=== PATIENT | female | born 2000 | race Caucasian/White ===

== ENCOUNTER 2023-12-11 08:00 | Outpatient (CLI) | payer OTHER ==
[2023-12-11 09:17] LABS: BILIRUBIN,URINE NEGATIVE (NEGATIVE); GLUCOSE, URINE (UA) NEGATIVE (NEGATIVE); KETONES,URINE (UA) NEGATIVE (NEGATIVE); LEUKOCYTE ESTERASE, URINE NEGATIVE (NEGATIVE); NITRITE,URINE NEGATIVE (NEGATIVE); OCCULT BLOOD,URINE NEGATIVE (NEGATIVE); PROTEIN,URINE NEGATIVE (NEGATIVE); UROBILINOGEN,URINE 0.2 (NORMAL) E.U./dL (NORMAL)
[2023-12-11 09:23] LABS: BACTERIA,URINE None Seen /HPF (None Seen); CLARITY,URINE CLEAR (CLEAR); RBC,URINE 0-5 /HPF (0-5); SQUAMOUS EPITHELIAL CELL,UR RARE Squamous (<= Few); WBC,URINE 0-3 /HPF (0-5)
== END 2023-12-11 23:59 | disposition home or self-care (01) ==
LOC: LAB.WC 08:00
PROVIDERS: ATTEND Obstetrics & Gynecology
DX: Z34.90 Encounter for supervision of normal pregnancy, unspecified, unspecified trimester (principal)
CPT/HCPCS: 81001; 87086

== ENCOUNTER 2023-12-21 08:34 | Outpatient (CLI) | payer OTHER ==
--- NOTE | 2023-12-21 15:26 | Ultrasound Report ---
PROCEDURE: OB 1st Trimester INDICATIONS: POSITIVE TEST OUTSIDE/PRIOR DATING DATA: Last menstrual period (LMP): 10/03/2023. LMP-based estimated date of delivery (FESTUS): 07/09/2024. First dating scan (date and location): 12/21/2023. Estimated date of delivery (FESTUS) from first dating scan: 07/08/2024. TECHNIQUE: Real-time scanning was performed of the fetus and maternal pelvic organs, with image documentation. COMPARISON: None. FINDINGS: Intrauterine gestational sac present. Embryo: There is a single live intrauterine gestation with a crown-rump length of 4.6 cm for a gesta tional age of 11 weeks, 3 days. Heart rate: 145 bpm. Other: No perigestational fluid collection. Measurement variability in dating: +/- 4 weeks by LMP, +/- 7 days by mean sac diameter (use before 6 weeks gestation if crown-rump length not able to be measured), +/- 5 days by crown-rump length (6-12 weeks gestation). Maternal organs: Ovaries are sonographic appearance. There is a left corpus luteal cyst which measur es 2.1 cm in diameter. IMPRESSION: 1. Single live intrauterine gestation with a gestational age of 11 weeks, 3 days by crown-rump length . Reviewed by: Cheryl Estrada MD on 12/21/2023 3:24 PM PDT Approved by: Cheryl Estrada MD on 12/21/2023 3:24 PM PDT Station ID: [id number]
== END 2023-12-21 08:35 | disposition home or self-care (01) ==
LOC: DI 08:34
PROVIDERS: ATTEND Obstetrics & Gynecology
DX: Z34.91 Encounter for supervision of normal pregnancy, unspecified, first trimester (principal)

== ENCOUNTER 2024-01-07 08:00 | Outpatient (CLI) | payer OTHER ==
[2024-01-07 20:33] LABS: CHLAMYDIA TRACHOMATIS DNA NEGATIVE (NEGATIVE); NEISSERIA GONORRHOEAE DNA NEGATIVE (NEGATIVE); TRICHOMONAS VAGINALIS DNA NEGATIVE (NEGATIVE)
== END 2024-01-07 23:59 | disposition home or self-care (01) ==
LOC: LAB.WC 08:00
PROVIDERS: ATTEND Obstetrics & Gynecology
DX: Z11.3 Encounter for screening for infections with a predominantly sexual mode of transmission (principal)
CPT/HCPCS: 87491; 87591; 87661

== ENCOUNTER 2024-01-07 16:01 | Outpatient (CLI) | payer OTHER | END 2024-01-07 16:02 | disposition home or self-care (01) | LOC: LAB 16:01 | PROVIDERS: ATTEND Obstetrics & Gynecology | DX: Z11.3 Encounter for screening for infections with a predominantly sexual mode of transmission (principal) | CPT/HCPCS: 85025; 86592; 86762; 86787; 86803; 86850; 86900; 86901; 87340; 87389; 87491; 87591; 87661 ==

== ENCOUNTER 2024-01-27 07:54 | Outpatient (CLI) | payer OTHER ==
[2024-01-27 11:49] LABS: BASOPHILS % (AUTO) 0.3 %; EOSINOPHILS # (AUTO) 0.1 10^3/uL (0.0-0.7); EOSINOPHILS % (AUTO) 0.7 %; HCT - HEMATOCRIT 33.2 % (37.0-47.0); HGB - HEMOGLOBIN 11.5 g/dL (12.0-16.0); LYMPHOCYTES # (AUTO) 1.3 10^3/uL (1.5-3.5); LYMPHOCYTES % (AUTO) 17.5 %; MEAN CORPUSCULAR HEMOGLOBIN 29.3 pg (27.0-31.0); MEAN CORPUSCULAR HGB CONC 34.6 g/dL (32.0-36.0); MEAN CORPUSCULAR VOLUME 84.7 fL (81.0-99.0); MEAN PLATELET VOLUME 11.3 fL (7.9-10.8); MONOCYTES # (AUTO) 0.6 10^3/uL (0.0-1.0); MONOCYTES % (AUTO) 7.4 %; NEUTROPHILS # (AUTO) 5.6 10^3/uL (1.5-6.6); NEUTROPHILS % (AUTO) 73.8 %; PLT - PLATELET COUNT 218 10^3/uL (130-450); RED BLOOD COUNT 3.92 10^6/uL (4.20-5.40); RED CELL DISTRIBUTION WIDTH 12.5 % (12.0-15.0); WHITE BLOOD COUNT 7.6 x10^3/uL (4.8-10.8)
[2024-01-28 03:14] LABS: HIV SCREEN 4TH GENERATION Non Reactive (Non Reactive)
[2024-01-28 06:10] LABS: HBsAG SCREEN Negative (Negative); RPR Non Reactive (Non Reactive)
[2024-01-28 09:10] LABS: VARICELLA-ZOSTER AB IGG 317 index (Immune >165)
== END 2024-01-27 07:55 | disposition home or self-care (01) ==
LOC: LAB.N 07:54
PROVIDERS: ATTEND Obstetrics & Gynecology
DX: Z34.90 Encounter for supervision of normal pregnancy, unspecified, unspecified trimester (principal)
CPT/HCPCS: 36415; 81511; 85025; 86592; 86762; 86787; 86803; 86850; 86900; 86901; 87340; 87389

== ENCOUNTER 2024-02-23 08:49 | Outpatient (CLI) | payer OTHER ==
--- NOTE | 2024-02-23 12:05 | Ultrasound Report ---
PROCEDURE: OB Anatomy Scan INDICATIONS: SUPERVISION OF OUTSIDE/PRIOR DATING DATA: Last menstrual period (LMP): 10/03/2023. LMP-based estimated date of delivery (FESTUS): 07/09/2024. First dating scan (date and location): 12/21/2023. Estimated date of delivery (FESTUS) from first dating scan: 07/08/2024. The below data below was generated using the ultrasound FESTUS of 07/08/2024 TECHNIQUE: Real-time scanning was performed of the fetus, with image documentation and biometric measurements. Endovaginal scanning: Not performed. COMPARISON: 12/21/2023 FINDINGS: General: A single living intrauterine gestation is present. Presentation: Variable Placenta: Placental position is anterior, without previa. Amniotic fluid index: 14.7 cm, within normal limits for gestational age. (Largest vertical pocket 4 .3 cm) heart rate: 141 beats per minute. Maternal cervical canal: 4.3 cm long; normal length is 2.5 cm or more. biometrics: Biparietal diameter: 4.6 cm, 20 weeks and 0 days (27th percentile) Head circumference: 17.9 cm, 20 weeks and 3 days (32nd percentile) Abdominal circumference: 14.2 cm, 19 weeks and 4 days (15th percentile) Femur length: 3.25 cm, 20 weeks and 1 day (27th percentile) Estimated gestational age from initial scan: 20 weeks and 4 days Composite gestational age from present scan: 20 weeks and 0 days Estimated weight and percentile: 319.6 g which correlates with the 15th percentile for gestati onal age. Measurement variability in biometric dating: +/- 10 days from 12-20 weeks gestation, +/- 2 weeks from 20-30 weeks gestation, +/- 3 weeks at 30 weeks gestation or later. Anatomic survey: Neuro: Ventricles are normal at less than 10 mm. Cisterna magna is normal at 3-11 mm. Cerebellum i s normal in size and morphology. Nuchal skin fold: Normal at less than 6 mm between 14 and 20 weeks gestational age. Face: Nose and lips, facial profile are normal. Spine: No evidence for spina bifida. Heart: 4-chambered heart is present, with normal ventricular outflow tracts. Diaphragm: Diaphragm is intact. Stomach: Left-sided stomach is present. Kidneys: No hydronephrosis. Normal is less than 5 mm in 2nd trimester, less than 7 mm in 3rd trimester. Cord: 3 vessel cord has orthotopic insertion. Bladder: Normal in size. Extremities: All 4 extremities are visualized. IMPRESSION: Single living intrauterine gestation with estimated sonographic gestational age of approximately 20 w eeks and 0 days. Estimated weight of approximately 319.6 g which correlates with the 15th perce ntile for gestational age. Normal interval growth has occurred. Normal routine second trimester anatomy screening survey. Reviewed by: Juan Antonio Howard MD on 02/23/2024 12:04 PM PDT Approved by: Juan Antonio Howard MD on 02/23/2024 12:04 PM PDT Station ID: [id number]
== END 2024-02-23 08:50 | disposition home or self-care (01) ==
LOC: DI 08:49
PROVIDERS: ATTEND Obstetrics & Gynecology
DX: Z34.92 Encounter for supervision of normal pregnancy, unspecified, second trimester (principal)

== ENCOUNTER 2024-04-08 09:40 | Outpatient (CLI) | payer OTHER ==
[2024-04-08 11:30] LABS: HCT - HEMATOCRIT 34.4 % (37.0-47.0); HGB - HEMOGLOBIN 11.1 g/dL (12.0-16.0); MEAN CORPUSCULAR HEMOGLOBIN 27.8 pg (27.0-31.0); MEAN CORPUSCULAR HGB CONC 32.3 g/dL (32.0-36.0); MEAN PLATELET VOLUME 10.7 fL (7.9-10.8); RED CELL DISTRIBUTION WIDTH 12.1 % (12.0-15.0); WHITE BLOOD COUNT 10.7 x10^3/uL (4.8-10.8)
[2024-04-09 05:19] LABS: RPR Non Reactive (Non Reactive)
== END 2024-04-08 09:41 | disposition home or self-care (01) ==
LOC: LAB.N 09:40 → LAB 09:41
PROVIDERS: ATTEND Obstetrics & Gynecology
DX: Z34.90 Encounter for supervision of normal pregnancy, unspecified, unspecified trimester (principal); Z36.89 Encounter for other specified antenatal screening
CPT/HCPCS: 36415; 82950; 85027; 86592

== ENCOUNTER 2024-04-18 08:03 | Outpatient (CLI) | payer OTHER ==
[2024-04-18 08:39] LABS: GTT GLUCOSE,FASTING 80 mg/dL (74-109)
== END 2024-04-18 08:04 | disposition home or self-care (01) ==
LOC: LAB 08:03
PROVIDERS: ATTEND Obstetrics & Gynecology
DX: O99.810 Abnormal glucose complicating pregnancy (principal)
CPT/HCPCS: 36415; 82951; 82952

== ENCOUNTER 2024-07-07 17:36 | Inpatient (IN) ==
[2024-07-07] MEDS ORDERED: lidocaine 1% 20 ML MDV ID PRN (18:17)
[2024-07-07] MEDS ORDERED: OXYTOCIN 10 UNIT/ML VIAL IM PRN (18:17)
[2024-07-07] MEDS ORDERED: METHYLERGONOVINE 0.2 MG/ML VIAL IM PRN (18:17)
[2024-07-07] MEDS ORDERED: hydrALAZINE INJ 20 MG/ML VIAL IVP PRN (18:17)
[2024-07-07] MEDS ORDERED: SODIUM CHLORIDE FLUSH 0.9% 10 ML SYRINGE IVP PRN (18:17)
[2024-07-07] MEDS ORDERED: OXYTOCIN/SODIUM CHLORIDE 500 ML IV PRN (18:17)
[2024-07-07] MEDS ORDERED: fentaNYL 100 MCG/2 ML VIAL IVP PRN (18:17)
[2024-07-07] MEDS ORDERED: TERBUTALINE 1 MG/ML VIAL SUBQ PRN (18:17)
[2024-07-07] MEDS ORDERED: NIFEdipine 10 MG CAPSULE PO PRN (18:17)
[2024-07-07] MEDS ORDERED: miSOPROStoL 200 MCG TABLET BC PRN (18:17)
[2024-07-07] MEDS ORDERED: LABETALOL 20 MG/4 ML SYRINGE IVP PRN ×3 (18:17)
[2024-07-07] MEDS ORDERED: TRANEXAMIC ACID IN NACL 1,000 MG/100 ML BAG IV PRN (18:17)
[2024-07-07] MEDS ORDERED: miSOPROStoL 200 MCG TABLET PR PRN (18:17)
--- NOTE | 2024-07-07 18:17 | HISTORY & PHYSICAL EXAMINATION ---
Admit History Smoking Status: Never smoker HPI Current : Vital Signs Temperature 36.5 C 07/07/24 17:54 Pulse Rate 91 H 07/07/24 17:54 Respiratory Rate 18 07/07/24 17:54 Blood Pressure 134/76 H 07/07/24 17:54 Temperature 36.5 C 07/07/24 17:54 Pulse Rate 91 H 07/07/24 17:54 Respiratory Rate 18 07/07/24 17:54 Blood Pressure 134/76 H 07/07/24 17:54 HPI: Patient is a 24-year-old G1, P0 at 39 weeks 5 days gestation presenting with contractions. She was has good movement. Denies loss of fluid. No ZAMORA/BV or RUQP. Denies nausea and vomiting. Denies urinary urgency or dysuria. All other symptoms reviewed and were negative except per HPI. Course LMP: 10/03/23 (sure) FESTUS by LMP: 07/09/24 US: 12/21/23 11w3d with FESTUS of 07/08 Final FESTUS: 07/09/24 by LMP c/w 11wk US She and partner Kelby are both in [employer]. 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 Elevated blood pressure without diagnosis of gestational hypertension: -Preeclampsia labs ordered at 37 weeks. If elevated next week, likely early induction. H/o anxiety/depression - on Lexapro x 6 months prior to , stopped with + test. No counselor. No concerns with mood at initial visit. -25-week EPDS of 17. Encouraged counseling[place] counselors given. Pre- Weight:143.2 BMI: 24.67 Blood type: O+ Rh: + Antibody: Negative CBC H/H 11.5/33.2 plt 218 RUB: Immune VZV: Immune HBsAg: Negative HepC: NR RPR/AB-EIA: NR HIV: NR PAP:11/14 - normal GC/CT: Negative HSV: denies in self and partner Genetic testing: Ordered 02/02 Covid: vaccinated Flu: 05/25/24 FAS: 02/23 Placenta: anterior without previa Cord: 3VC JESSICA: WNL EFW: 319g 15%ile 50gm OGCT:155 3HR GTT: fast 80, 1H 118, 2H 105, 3H 82 TDAP:9/ Breast Pump: 8/23 RSV 06/09 3rd trimester CBC:11.1/34.4%/226 GBS:06/15 Negative Delivery plan: Contraception: Natural family-planning. Uses natural cycles with [place] ring. Was successful before . OB History Physical exam: General: Alert, oriented, no acute distress Head: Normal cephalic atraumatic Eyes: PERRLA, extraocular motions intact. Respiratory: Normal rate of respiration. No accessory muscle use, normal respiratory effort. Cardiovascular: Regular rate and rhythm Abdomen: Gravid, nontender, nondistended Extremities: Normal range of motion Neuro: Oriented x3. Normal movements Psych: Appropriate mood and affect. Normal judgment and insight SVE: 6/80/-3 FHT: 145 beats minute baseline, moderate lability, accelerations present, no decelerations. Category 1, reactive NST [place]: Every 2 to 3 minutes NST Procedure NST Procedure: NST Procedure Start Time 10:32 Stop Time 12:00 Meds/Allgy Home Medications Ambulatory Orders Medication Instructions Recorded Confirmed vits no.126-ferrous fum 1 tab PO .QD 06/06/24 07/06/24 28 mg iron-folic acid 800 mcg tablet (Classic ) Allergies Allergies Allergy/AdvReac Type Severity Reaction Status Date / Time No Known Drug Allergies Allergy Verified 07/06/24 09:51 [facility] Medical History Medical History (Updated 07/07/24 @ 19:13 by Frank Zimmer MD) False labor History of anxiety History of depression Surgical History Surgical History (Updated 06/22/24 @ 11:21 by Risa Marc MA) H/O left wrist surgery History of toe surgery 6th toe removed Family History Family History (Updated 06/22/24 @ 11:22 by Risa Marc MA) Mother Bipolar 1 disorder High blood pressure Father High blood pressure Social History Social History Smoking Status: Never smoker Second hand tobacco smoke exposure: No Do you dip or chew tobacco?: No Do you vape?: No ETOH Use: None Substance Use: denies use Are you sexually active?: Yes Physical Abdominal Exam Vital Signs: Temp Pulse Resp BP 36.5 C 91 H 18 134/76 H 07/07/24 17:54 07/07/24 17:54 07/07/24 17:54 07/07/24 17:54 Plan for Labor Plan For Labor I expect patient to be DC'd or transferred within 96 hours.: Yes Conclusion/Plan Problem List (1) 39 weeks gestation of : Plan: Admit to L&D, admit labs, epidural at patient's request. Anticipate AROM, anticipate . (2) Uterine contractions: (3) Supervision of normal : Qualifiers: Normal : normal first Trimester: third trimester Qualified Code(s): Z34.03 - Encounter for supervision of normal first , third trimester Lab Results 07/07/24 18:10 07/07/24 18:10
[2024-07-07] MEDS ORDERED: ONDANSETRON 4 MG/2 ML VIAL IVP PRN ×3 (18:24→23:11)
[2024-07-07 18:25] LABS: BASOPHILS % (AUTO) 0.1 %; EOSINOPHILS # (AUTO) 0.1 10^3/uL (0.0-0.7); EOSINOPHILS % (AUTO) 0.5 %; HCT - HEMATOCRIT 39.7 % (37.0-47.0); HGB - HEMOGLOBIN 13.7 g/dL (12.0-16.0); LYMPHOCYTES # (AUTO) 1.3 10^3/uL (1.5-3.5); LYMPHOCYTES % (AUTO) 7.9 %; MEAN CORPUSCULAR HEMOGLOBIN 27.7 pg (27.0-31.0); MEAN CORPUSCULAR HGB CONC 34.5 g/dL (32.0-36.0); MEAN CORPUSCULAR VOLUME 80.2 fL (81.0-99.0); MEAN PLATELET VOLUME 11.3 fL (7.9-10.8); MONOCYTES # (AUTO) 0.7 10^3/uL (0.0-1.0); MONOCYTES % (AUTO) 4.4 %; NEUTROPHILS # (AUTO) 14.1 10^3/uL (1.5-6.6); NEUTROPHILS % (AUTO) 86.7 %; PLT - PLATELET COUNT 259 10^3/uL (130-450); RED BLOOD COUNT 4.95 10^6/uL (4.20-5.40); RED CELL DISTRIBUTION WIDTH 13.4 % (12.0-15.0); WHITE BLOOD COUNT 16.3 x10^3/uL (4.8-10.8)
[2024-07-07] MEDS ORDERED: LIDOCAINE 2%-EPI 1:100000 20 ML MDV ONE (18:30)
[2024-07-07] MEDS ORDERED: ROPIVACAINE 0.2% 200 MG/100 ML BAG EP ONE (18:30)
[2024-07-07 18:39] LABS: ALBUMIN 3.6 g/dL (3.2-5.5); ALBUMIN/GLOBULIN RATIO 0.9 (1.0-2.2); BILIRUBIN,TOTAL 0.6 mg/dL (0.2-1.0); CALCIUM 9.3 mg/dL (8.5-10.3); CREATININE 0.5 mg/dL (0.6-1.3); POTASSIUM 3.6 mmol/L (3.5-4.5); TOTAL PROTEIN 7.5 g/dL (6.4-8.9)
[2024-07-07] MEDS: LACTATED RINGERS 1,000 ML IV PRN (19:00)
[2024-07-07] MEDS ORDERED: SODIUM CHLORIDE FLUSH 0.9% 10 ML SYRINGE IVP SCH (19:00)
[2024-07-07] MEDS ORDERED: ROPIVACAINE 0.2% 200 MG/100 ML BAG EP PRN (19:13)
[2024-07-07] MEDS ORDERED: LACTATED RINGERS 500 ML IV ONE (19:13)
[2024-07-07] MEDS ORDERED: NALBUPHINE 10 MG/ML AMP IVP PRN (19:13)
[2024-07-07] MEDS ORDERED: ePHEDrine 50 MG/ML VIAL IVP PRN (19:13)
[2024-07-07] MEDS ORDERED: NALOXONE 0.4 MG/ML VIAL IVP PRN (19:13)
[2024-07-07] MEDS ORDERED: diphenhydrAMINE INJ 50 MG/ML VIAL IVP PRN (19:13)
[2024-07-07] MEDS ORDERED: METOCLOPRAMIDE 10 MG/2 ML VIAL IVP PRN (19:13)
--- NOTE | 2024-07-07 19:16 | ANESTHESIA PROCEDURE NOTE ---
Pre-Anesthesia VS, & Labs Diagnosis Surgical Diagnosis:: labor pain Procedure Procedure: epidural for Vitals Vital Signs: Temp Pulse Resp BP 36.5 C 91 H 18 134/76 H 07/07/24 17:54 07/07/24 17:54 07/07/24 17:54 07/07/24 17:54 NPO Last Fluid Intake: t/o day Is Patient ?: Yes Lab Results Current Lab Results: Laboratory Tests 07/07/24 18:10: WBC 16.3 H, RBC 4.95, Hgb 13.7, Hct 39.7, MCV 80.2 L, MCH 27.7, MCHC 34.5, RDW 13.4, Plt Count 259, MPV 11.3 H, Neut # (Auto) 14.1 H, Lymph # (Auto) 1.3 L, [place] # (Auto) 0.7, Eos # (Auto) 0.1, Baso # (Auto) 0.0, Absolute Nucleated RBC 0.00, Nucleated RBC % 0.0, Sodium 132 L, Potassium 3.6, Chloride 103, Carbon Dioxide 18 L, Anion Gap 11.0, BUN 8, Creatinine 0.5 L, Estimated GFR (MDRD) 149, Glucose 108 H, Calcium 9.3, Total Bilirubin 0.6, AST 18, ALT 13, Alkaline Phosphatase 88, Total Protein 7.5, Albumin 3.6, Globulin 3.9, A lbumin/Globulin Ratio 0.9 L, Blood Type O POSITIVE, Antibody Screen NEGATIVE Lab results reviewed: Yes 07/07/24 18:10 07/07/24 18:10 Meds/Allgy Home Medications Ambulatory Orders Medication Instructions Recorded Confirmed vits no.126-ferrous fum 1 tab PO .QD 06/06/24 07/06/24 28 mg iron-folic acid 800 mcg tablet (Classic ) Allergies Allergies Allergy/AdvReac Type Severity Reaction Status Date / Time No Known Drug Allergies Allergy Verified 07/06/24 09:51 [facility] Medical History Medical History (Updated 07/07/24 @ 19:13 by Frank Zimmer MD) False labor History of anxiety History of depression Surgical History Surgical History (Updated 06/22/24 @ 11:21 by Risa Marc MA) H/O left wrist surgery History of toe surgery 6th toe removed Family History Family History (Updated 06/22/24 @ 11:22 by Risa Marc MA) Mother Bipolar 1 disorder High blood pressure Father High blood pressure Social History Social History Smoking Status: Never smoker Second hand tobacco smoke exposure: No Do you dip or chew tobacco?: No Do you vape?: No ETOH Use: None Substance Use: denies use Are you sexually active?: Yes Anesthesia Exam (Expanded) Exam General: Alert, Oriented x3, Cooperative and Mild distress Mouth Openin Fingerbreadth Neck Mobility: Normal Mallampati classification: II Thyromental Distance: 4-6 cm Respiratory: No respiratory distress Neurological: Normal speech Mental/Cognitive Status: Alert/Oriented X3 and Normal for patient Cognitive Status: Within normal limits Plan Problem List (1) 39 weeks gestation of : Plan: Admit to L&D, admit labs, epidural at patient's request. Anticipate AROM, anticipate . (2) Uterine contractions: (3) Supervision of normal : Qualifiers: Normal : normal first Trimester: third trimester Qualified Code(s): Z34.03 - Encounter for supervision of normal first , third trimester Plan Anesthesia Type: Epidural Consent for Procedure(s) Verified and Reviewed: Yes Code Status: Attempt Resuscitation ASA Classification ASA classification: 2-Mild systemic disease Is this case an emergency?: No
--- NOTE | 2024-07-07 22:20 | PROVIDER PROGRESS NOTE ---
Labor Progress Note Uterine Monitoring Uterine Monitoring Mode: positive External toco Contraction Frequency (min/apart): 2-4 Contraction Intensity: positive Strong Uterine Resting Tone: positive Soft Monitoring Monitor Mode: positive External ultrasound Heart Rate Baseline: 150 Heart Rate Variability: positive Moderate (6-25 bmp) Accelerations: positive Present, 15x15 Decelerations: positive Early, Variable and Intermittent (<50% x20 min) Strip Review: positive Category II Vaginal Exam Dilation (in cm): 10 Effacement (%): 100 Station: 1 Labor Progress Note Labor Progress Note/Additional Text: Patient had an epidural placed then had amniotomy performed. Currently checked and found to be complete and starting to push. Patient making good pushing efforts with some descent in each push. Will continue until .
[2024-07-07] MEDS ORDERED: SIMETHICONE CHEW 80 MG TABLET PO PRN (23:11)
[2024-07-07] MEDS ORDERED: WITCH HAZEL/GLYCERIN 1 PAD TOP PRN (23:11)
[2024-07-07] MEDS ORDERED: CALCIUM CARBONATE CHEW 500 MG TABLET PO PRN (23:11)
--- NOTE | 2024-07-07 23:15 | DELIVERY NOTE ---
Delivery Note Labor Labor: positive Spontaneous and Augmented by ARM Delivery Method Delivery Method: positive Spontaneous vaginal delivery Presentation Presentation: positive Vertex Nuchal Cord Nuchal Cord: positive None Amniotic Fluid Description Amniotic Fluid Description: positive Clear Laceration Laceration: positive 2nd degree Suture Suture Type: positive Vicryl Suture Size: positive 3-0 Delivery Outcome Delivery Outcome: positive Livebirth [place]: positive Placed in direct skin contact with mother Cord Cord: positive 3 vessels Placenta Placenta: positive Intact Estimated Blood Loss Estimated Blood Loss (in cc): 250 Post Delivery Events Post Delivery Events: positive No post delivery events Delivery Comments (Free Text/Narrative) Delivery Comments (Free Text/Narrative): Preoperative Diagnoses 39 weeks gestation Term labor Postoperative Diagnoses Same Deliver live leiva Status post spontaneous vaginal delivery Summary Patient presented at 39 weeks gestation sylvia spontaneously. Earlier in the day, she came in at 1 cm, but did not make cervical change. She went home for short while, but returned and progressed quickly from 4 to 6 cm while in triage. She had an epidural for pain control and progressed to 8 cm when amniotomy was performed with moderate amount of clear fluid. She then progressed on her own until complete and ready to push. Delivery Summary: Patient was placed in the dorsal lithotomy position. Upon maternal pushing the head was delivered atraumatically followed by the anterior shoulder, posterior shoulder, then the remainder of the infant's body. A male was delivered with APGARS of 8 at 1 minute and 9 at 5 minutes. The was placed on its mother's chest . After the cord finished pulsating, the umbilical cord was clamped times two and cut. The placenta delivered intact with three vessel cord. Placenta was not sent to pathology. Thirty units of Pitocin were added to the IV fluid and allowed to run freely. Uterine massage was performed until uterus was deemed firm. Upon inspection of the perineum, secondary midline laceration was noted and repaired with a running suture of 3-0 Vicryl. She had another bleeding spot on the left sidewall of a single arterial bleed that was stopped with a [id number] stitch. Upon re-inspection the patient was hemostatic. Uterus again massaged and found to be firm. Needle and sponge counts were correct. Patient was stable and allowed to recover in L&D room. was stable and remained in room with mother. weight is pending at this time.
[2024-07-07] MEDS ORDERED: LACTATED RINGERS 1,000 ML IV SCH (23:45)
[2024-07-08] MEDS: ACETAMINOPHEN 500 MG TABLET PO SCH (06:17)
[2024-07-08] MEDS: IBUPROFEN 600 MG TABLET PO SCH (06:18)
--- NOTE | 2024-07-08 11:30 | PHARMACY PROGRESS NOTE ---
Best Possible Medication History Admit Date and Time: 07/07/24 100301 Home Medications Medication Instructions Recorded Confirmed Type vits no.126-ferrous fum 1 tab PO .QD 06/06/24 07/08/24 History 28 mg iron-folic acid 800 mcg tablet (Classic ) [facility] Statement: As the person ultimately responsible for medication therapy, providers are able to order a medication from an existing home medication list in [facility] via the "Reconcile Routine" prior to Confirmation of that medication by passport support associate. Such practice is discouraged except when the physician, in their clinical judgment, deems that a medical need exists for a medication without regard to previous use.
--- NOTE | 2024-07-08 13:45 | HISTORY & PHYSICAL EXAMINATION ---
Admit History Smoking Status: Never smoker HPI Current : Current EDU 07/08/24 Gestation 39 Weeks and 6 Days Para 0 Vital Signs Temperature 36.5 C 07/07/24 17:54 Pulse Rate 91 H 07/07/24 17:54 Respiratory Rate 18 07/07/24 17:54 Blood Pressure 134/76 H 07/07/24 17:54 Temperature 36.7 C 07/08/24 09:37 Pulse Rate 87 07/08/24 09:37 Respiratory Rate 16 07/08/24 09:37 Blood Pressure 119/61 07/08/24 09:37 O2 Saturation 99 07/08/24 09:37 NST Procedure NST Procedure: NST Procedure Start Date 07/07/24 Start Time 17:45 Stop Time 18:10 Vibroacoustic Stimulation Used No Patient States Movement Yes Meds/Allgy Home Medications Ambulatory Orders Medication Instructions Recorded Confirmed vits no.126-ferrous fum 1 tab PO .QD 06/06/24 07/08/24 28 mg iron-folic acid 800 mcg tablet (Classic ) Allergies Allergies Allergy/AdvReac Type Severity Reaction Status Date / Time No Known Drug Allergies Allergy Verified 07/06/24 09:51 [facility] Medical History Medical History (Updated 07/07/24 @ 19:13 by Frank Zimmer MD) False labor History of anxiety History of depression Surgical History Surgical History (Updated 06/22/24 @ 11:21 by Risa Marc MA) H/O left wrist surgery History of toe surgery 6th toe removed Family History Family History (Updated 06/22/24 @ 11:22 by Risa Marc MA) Mother Bipolar 1 disorder High blood pressure Father High blood pressure Social History Social History Smoking Status: Never smoker Second hand tobacco smoke exposure: No Do you dip or chew tobacco?: No Do you vape?: No ETOH Use: None Substance Use: denies use Are you sexually active?: Yes Physical Abdominal Exam Vital Signs: Temp Pulse Resp BP Pulse Ox 36.7 C 87 16 119/61 99 07/08/24 09:37 07/08/24 09:37 07/08/24 09:37 07/08/24 09:37 07/08/24 09:37 Conclusion/Plan Problem List (1) 39 weeks gestation of : Plan: Admit to L&D, admit labs, epidural at patient's request. Anticipate AROM, anticipate . (2) Uterine contractions: (3) Supervision of normal : Qualifiers: Normal : normal first Trimester: third trimester Qualified Code(s): Z34.03 - Encounter for supervision of normal first , third trimester Lab Results Lab results reviewed: Yes 07/07/24 18:10 07/07/24 18:10
--- NOTE | 2024-07-08 17:45 | PROVIDER PROGRESS NOTE ---
Subjective Subjective Subjective: Azucena reports she is feeling great. Pain is well controlled. She is breast feeding. She is ambulating and urinating without difficulty. Reports lochia is appropriate. Current Medications Current Medications Current Medications: Current Medications Generic Name Dose Route Start Last Admin Trade Name Freq PRN Reason Stop Dose Admin Acetaminophen 1,000 mg 07/07/24 23:45 07/08/24 14:21 Acetaminophen 500 Mg Tablet PO 1,000 mg Q8HR JONAS Administration Calcium Carbonate/Glycine 500 mg 07/07/24 23:11 Calcium Carbonate Chew 500 Mg Tablet PO TID PRN Heartburn Diphenhydramine HCl 12.5 - 25 mg 07/07/24 19:13 Diphenhydramine Inj 50 Mg/Ml Vial IVP Q6HR PRN ITCHING Ephedrine Sulfate 5 mg 07/07/24 19:13 Ephedrine 50 Mg/Ml Vial IVP Q5M PRN For SBP<100;give until SBP>100 Fentanyl 50 mcg 07/07/24 18:17 Fentanyl 100 Mcg/2 Ml Vial IVP Q1H PRN Severe Pain (score 7-10) Hydralazine HCl 5 - 10 mg 07/07/24 18:17 Hydralazine Inj 20 Mg/Ml Vial IVP Q20M PRN SBP> or= 160 OR DBP> or= 110 Protocol Lactated Ringer's 500 mls @ 999 mls/hr 07/07/24 18:17 07/07/24 19:00 Lr IV 125 mls/hr PRN PRN Infusion PER PHYSICIAN ORDER Oxytocin/Sodium Chloride 500 mls @ 999 mls/hr 07/07/24 18:17 Pitocin/Sodium Chloride IV PRN PRN POST- HEMORR PREVENTION Protocol 999 MILLIUNIT/MIN Tranexamic Acid 1,000 mg in 100 mls @ 600 mls/hr 07/07/24 18:17 Tranexamic 1,000 Mg/100ml-Nacl IV Q30M PRN EBL >1200mL and within 3hr Ropivacaine 200 mg in 100 mls @ 0 mls/hr 07/07/24 19:13 Naropin 0.2% EP PRN PRN PAIN Protocol Per Protocol Lactated Ringer's 1,000 mls @ 100 mls/hr 07/07/24 23:45 Lr IV .Q10H JONAS Ibuprofen 600 mg 07/08/24 00:00 07/08/24 14:22 Ibuprofen 600 Mg Tablet PO 600 mg Q6HR JONAS Administration Labetalol HCl 20 - 80 mg 07/07/24 18:17 Labetalol 20 Mg/4 Ml Syringe IVP Q10M PRN SBP> or= 160 OR DBP> or= 110 Protocol Labetalol HCl 20 mg 07/07/24 18:17 Labetalol 20 Mg/4 Ml Syringe IVP .ONCE PRN SBP> or= 160 OR DBP> or= 110 Protocol Labetalol HCl 20 - 40 mg 07/07/24 18:17 Labetalol 20 Mg/4 Ml Syringe IVP Q10M PRN SBP> or= 160 OR DBP> or= 110 Protocol Lidocaine HCl 20 ml 07/07/24 18:17 Lidocaine 1% 20 Ml Mdv ID 07/10/24 18:17 .ONCE PRN PERINEAL REPAIR Methylergonovine Maleate 0.2 mg 07/07/24 18:17 Methylergonovine 0.2 Mg/Ml Vial IM .ONCE PRN Hemorrhage Metoclopramide HCl 10 mg 07/07/24 19:13 Metoclopramide 10 Mg/2 Ml Vial IVP Q6HR PRN Nausea / Vomiting Misoprostol 600 mcg 07/07/24 18:17 Misoprostol 200 Mcg Tablet BC .ONCE PRN Hemorrhage Misoprostol 800 mcg 07/07/24 18:17 Misoprostol 200 Mcg Tablet NE .ONCE PRN Hemorrhage Nalbuphine HCl 2.5 - 5 mg 07/07/24 19:13 Nalbuphine 10 Mg/Ml Amp IVP Q4H PRN ITCHING Naloxone HCl 0.1 mg 07/07/24 19:13 Naloxone 0.4 Mg/Ml Vial IVP Q2M PRN RR<8 Nifedipine 10 - 20 mg 07/07/24 18:17 Nifedipine 10 Mg Capsule PO Q20M PRN SBP> or= 160 OR DBP> or= 110 Protocol Ondansetron HCl 4 mg 07/07/24 18:24 Ondansetron 4 Mg/2 Ml Vial IVP Q4HR PRN Nausea / Vomiting Ondansetron HCl 4 mg 07/07/24 19:13 Ondansetron 4 Mg/2 Ml Vial IVP Q6HR PRN Nausea / Vomiting Ondansetron HCl 4 mg 07/07/24 23:11 Ondansetron 4 Mg/2 Ml Vial IVP Q4HR PRN Nausea / Vomiting Oxytocin 10 unit 07/07/24 18:17 Oxytocin 10 Unit/Ml Vial IM .ONCE PRN Step One if no IV access. Simethicone 80 mg 07/07/24 23:11 Simethicone Chew 80 Mg Tablet PO TID PRN Gas Sodium Chloride 10 ml 07/07/24 18:17 Sodium Chloride Flush 0.9% 10 Ml Syringe IVP PRN PRN NEEDED PER PROVIDER ORDERS Sodium Chloride 10 ml 07/07/24 19:00 Sodium Chloride Flush 0.9% 10 Ml Syringe IVP Q8H JONAS Terbutaline Sulfate 0.25 mg 07/07/24 18:17 Terbutaline 1 Mg/Ml Vial SUBQ .ONCE PRN Tachystole Witch Chhaya/Glycerin 1 pad 07/07/24 23:11 Witch Chhaya/Glycerin 1 Pad TOP PRN PRN ITCHING Objective Vital Signs/Intake & Output Reviewed Vital Signs: Yes Intake & Output: Intake & Output 07/06/24 07/07/24 07/08/24 07/09/24 05:59 05:59 05:59 05:59 Intake Total 0 / 0 Output Total 500 / 500 Balance -500 / -500 Weight (kg) 180 lb Objective Comments/Other: Gen: NAD Chest: non labored respirations Abd: non tender, fundus firm Ext: no LE edema, no evidence of DVT Lab Results 07/07/24 18:10 07/07/24 18:10 Other Labs: Lab Results x24hrs 07/07/24 Range/Units 18:10 WBC 16.3 H (4.8-10.8) x10^3/uL RBC 4.95 (4.20-5.40) 10^6/uL Hgb 13.7 (12.0-16.0) g/dL Hct 39.7 (37.0-47.0) % MCV 80.2 L (81.0-99.0) fL MCH 27.7 (27.0-31.0) pg MCHC 34.5 (32.0-36.0) g/dL RDW 13.4 (12.0-15.0) % Plt Count 259 (130-450) 10^3/uL MPV 11.3 H (7.9-10.8) fL Neut # (Auto) 14.1 H (1.5-6.6) 10^3/uL Lymph # (Auto) 1.3 L (1.5-3.5) 10^3/uL [place] # (Auto) 0.7 (0.0-1.0) 10^3/uL Eos # (Auto) 0.1 (0.0-0.7) 10^3/uL Baso # (Auto) 0.0 (0.0-0.1) 10^3/uL Absolute Nucleated RBC 0.00 x10^3/uL Nucleated RBC % 0.0 /100WBC Sodium 132 L (135-145) mmol/L Potassium 3.6 (3.5-4.5) mmol/L Chloride 103 (101-111) mmol/L Carbon Dioxide 18 L (21-32) mmol/L Anion Gap 11.0 (6-13) BUN 8 (6-20) mg/dL Creatinine 0.5 L (0.6-1.3) mg/dL Estimated GFR (MDRD) 149 (>89) Glucose 108 H (74-104) mg/dL Calcium 9.3 (8.5-10.3) mg/dL Total Bilirubin 0.6 (0.2-1.0) mg/dL AST 18 (10-42) IU/L ALT 13 (10-60) IU/L Alkaline Phosphatase 88 (42-121) IU/L Total Protein 7.5 (6.4-8.9) g/dL Albumin 3.6 (3.2-5.5) g/dL Globulin 3.9 (2.1-4.2) g/dL Albumin/Globulin Ratio 0.9 L (1.0-2.2) Blood Type O POSITIVE Antibody Screen NEGATIVE Assessment/Plan Problem List (1) care and examination of lactating mother: Impression: Continue routine care. Anticipate discharge home in the morning.
[2024-07-09 02:37] VITALS: O2SAT 98
[2024-07-09] MEDS: DOCUSATE SODIUM 100 MG CAPSULE PO SCH (08:26)
--- NOTE | 2024-07-09 11:47 | Discharge Summary ---
Discharge Summary Admit Date: 07/07/24 Discharge Date: 07/09/24 HOSPITAL COURSE Hospital Course: Admission Diagnosis: - SIUP at 39w5d - labor - H/o anxiety/depression - GBS neg - Rh + - Rubella and varicella immune Discharge Diagnosis: - Same, delivered - Elevated blood pressure with dx of HTN Procedures: with repair of 2nd degree laceration, EBL 250cc Hospital Course: Azucena is a 24 yo now who presented at 39w5d in labor. Her labor was augmented with amniotomy and she had an uncomplicated . Her course was otherwise uncomplicated. Condition on Discharge: SUBJECTIVE: day 2 Having some pain at epidural site, but otherwise doing well. Pain is well controlled with current medications. The baby is doing well. Baby is feeding via breast feeding. She is ambulating well, tolerating normal diet, urinating without difficulty. Lochia is reported as light. OBJECTIVE: Vital signs reviewed GENERAL: NAD CHEST: non labored respirations ABD: soft, non tender, fundus firm EXT: lower extremity edema; No evidence of DVT BACK: epidural site without erythema or drainage LAB & IMAGING STUDIES: See below PLAN: Plan for discharge home with follow up in clinc as scheduled for this coming week. Reviewed home care instructions and medications. Patient counseled regarding signs and symptoms of infection, excessive bleeding, vaginal rest and activity restrictions. Contraceptive plans to be formalized at visit. Discussed that additional support is available in our clinic if needed. Preeclampsia precautions were reviewed. ALLERGIES Allergies Allergy/AdvReac Type Severity Reaction Status Date / Time No Known Drug Allergies Allergy Verified 07/06/24 09:51 MEDICATIONS Ambulatory Orders Medication Instructions Recorded Confirmed vits no.126-ferrous fum 1 tab PO .QD 06/06/24 07/08/24 28 mg iron-folic acid 800 mcg tablet (Classic ) acetaminophen 500 mg tablet 1,000 mg (2 x 500 mg) PO Q8HR PRN 07/09/24 Pain #30 tabs ibuprofen 600 mg tablet 600 mg PO Q6HR PRN pain #30 tabs 07/09/24 LABS 07/07/24 18:10 07/07/24 18:10 FOLLOW UP Follow Up: Follow up in clinic as scheduled on 07/13. TIME SPENT Time Spent in Discharge (Minutes): 25 Discharge Plan Discharge Patient Disposition: Home, Self Care Prescriptions: Continued Classic 28 mg iron- 800 mcg tablet 1 tab PO .QD No Action acetaminophen 500 mg tablet 1,000 mg PO Q8HR PRN (Reason: Pain) Qty: 30 0RF ibuprofen 600 mg tablet 600 mg PO Q6HR PRN (Reason: pain) Qty: 30 0RF Print Language: [place]an Patient Instructions: Vaginal After, Depression , Change Expect Parents Follow-up Care: Eze Serrano MD [Provider Admit Priv/Credential] -
--- NOTE | 2024-07-09 12:46 | Labor Flowsheet ---
Labor Flowsheet Datetime Report Generated by CPN: 07/09/2024 12:46 Datetime: 07/09/2024 08:28 VITAL SIGNS NBP Sys/Ellyn/Mean (mmHg): 120 : 63 : 77 Pulse: 94 Datetime: 07/08/2024 01:15 Stage of : Recovery Datetime: 07/08/2024 00:45 PAIN Pain Scale: 2 Pain Presence: None/Denies Datetime: 07/07/2024 22:50 Temperature (C): 36.6 Temperature Route: Oral Datetime: 07/07/2024 22:49 SpO2 (%): 99 LaborFlag: Labor Datetime: 07/07/2024 22:47 Pushing Progress: Caput Noted; with Pushing Datetime: 07/07/2024 22:36 Provider Reviewed Strip: Yes COMMUNICATION Communication: Provider at Bedside Notification Reason: Labor Status Datetime: 07/07/2024 22:24 UTERINE ACTIVITY Monitor Mode: External Quality: Strong Contraction Comments: pushing well with each contraction ASSESSMENT A Monitor Mode: External US Monitor Interventions for FHR: Ultrasound Adjusted FHR Baseline Rate : 150 FHR Baseline Changes: No Baseline Change Variability: Moderate 6-25 bpm Accelerations: 15X15 Decelerations: Early PATIENT CARE Oxygen Method: Room Air Datetime: 07/07/2024 22:13 Category: Category I TEACHING Instructional Method: Verbal Datetime: 07/07/2024 22:11 VAGINAL EXAM Dilatation (cm): 10.0 Effacement (%): 100 Station: 0 Vaginal Bleeding: Normal Show Cervix, Consistency: Soft Cervix, Position: Anterior STAGE 2 Pushing: Coached on Pushing Pushing Position: Pushing Lithotomy Preparation for Delivery: Setup for Delivery Datetime: 07/07/2024 22:00 Monitor Interventions for UA: [place] Adjusted Frequency (min): 2-3 Duration (sec): 40-70 Resting Tone (Palpate): Relaxed Datetime: 07/07/2024 21:28 Respirations: 18 Datetime: 07/07/2024 21:01 Amniotic Fluid Color: Clear Datetime: 07/07/2024 20:53 Patient Position/Activity: High Fowlers I/O Interventions: Law Cath Inserted Datetime: 07/07/2024 20:46 Exam by: [email or web address] Datetime: 07/07/2024 20:30 Pain Coping: Sleeping Patient Care Comments: turning from side to side Anesthesia Level Check: T9 Datetime: 07/07/2024 19:47 Membranes Ruptured Date/Time: 07/07/2024 19:37 Membranes Rupture Method: Artificial Amniotic Fluid Amount: Moderate Amniotic Fluid Odor: Normal Datetime: 07/07/2024 19:37 Pain Relief Measures: Epidural Given Datetime: 07/07/2024 19:30 Membrane Status: Intact Strip Reviewed by: Dr Goran Datetime: 07/07/2024 19:13 Pain Type: N/A Datetime: 07/07/2024 19:00 Pattern: Normal: <= 5 Contractions in 10 Minutes Comments: interupted strip due to patient sitting up for epidural placement Datetime: 07/07/2024 18:52 Epidural Procedure: Loading Dose Datetime: 07/07/2024 18:37 PROCEDURE TIME OUT Procedure Verify: Correct Patient Identity; Correct Side and Site are Marked; Accurate Procedure Co nsent Form; Agreement on Procedure to be Done; Correct Patient Position; Addressed Need to Administer Antibiotics or Fluids for Irrigation; Safety Precautions Based on Patient History or Medication Use ANESTHESIA Anesthesia Plans: Epidural Epidural Positioning: Sitting
== END 2024-07-09 11:50 | disposition home or self-care (01) | DRG 768 ==
LOC: WFO 17:36 → FBP 17:39
PROVIDERS: ADMIT Obstetrics & Gynecology; ATTEND Obstetrics & Gynecology
DX: O76 Abnormality in fetal heart rate and rhythm complicating labor and delivery; Z91.85 Personal history of military service; O72.1 Other immediate postpartum hemorrhage; O70.1 Second degree perineal laceration during delivery; Z37.0 Single live birth; Z3A.39 39 weeks gestation of pregnancy